=== PATIENT | female | born 1995 | race African-American/Black ===

== ENCOUNTER 2018-02-22 12:50 | Emergency (ER) | payer SELFPAY ==
[2018-02-22] MEDS ORDERED: MORPHINE 4 MG/ML SYR ONE (13:47)
[2018-02-22] MEDS ORDERED: ONDANSETRON 4 MG/2 ML VIAL ONE (13:47)
[2018-02-22 14:07] LABS: Absolute Lymphocytes (CBC) 2.5 K/uL (0.7-4.9); Absolute Monocytes 0.3 K/uL (0.1-1.3); Absolute Neutrophil 2.7 K/uL (1.8-8.0); Basophils % 0.8 % (0-1.3); Eosinophils % 2.4 % (0-4.4); Hematocrit 35.2 % (36.0-45.0); Lymphocytes % 43.6 % (15.3-44.8); MCH 26.5 pg (27.0-35.0); MCV 82.2 fL (80-100); MPV 8.8 fL (7.6-11.3); RBC Red Blood Cell Count 4.27 M/uL (3.86-4.86)
[2018-02-22 14:16] LABS: Bicarbonate 23 mEq/L (21-31); Glucose Level 94 mg/dL (65-120); Potassium 3.2 mEq/L (3.6-5.0); Sodium Level 137 mEq/L (135-145)
[2018-02-22 14:17] LABS: BUN Blood Urea Nitrogen 11 mg/dL (6-20)
[2018-02-22 14:35] LABS: HCG, Quantitative < 5.0 mIU/mL (<5)
[2018-02-22 14:37] LABS: Urine Blood 3+ (NEG); Urine Glucose NEGATIVE (NEG); Urine Protein 1+ (NEG)
[2018-02-22] MEDS ORDERED: KETOROLAC 30 MG/ML INJ ONE (15:04)
--- NOTE | 2018-02-22 15:17 | RAD REPORT ---
EXAM DESCRIPTION: CT - Abdomen Pelvis W Contrast - 02/22/2018 2:53 pm CLINICAL HISTORY: Abdominal pain and vaginal bleeding COMPARISON: none. TECHNIQUE: Computed axial tomography of the abdomen pelvis was obtained. 100 cc Isovue-300 was admin istered intravenously. Oral contrast was not requested which limits evaluation of bowel. All CT scans are performed using dose optimization technique as appropriate and may include automated exposure control or mA/KV adjustment according to patient size. FINDINGS: The liver, spleen, pancreas, adrenal and left kidney appear unremarkable. Two calculi are present within the right kidney. The largest measures 2 millimeters. Hydronephrosis is not seen. Righ t renal cortical thinning is present There is no evidence of diverticulitis. The appendix is normal. An adnexal mass is not seen. A minimal amount of free fluid probably is physiologic IMPRESSION: Tiny nonobstructing right renal calculi. Right renal cortical thinning may be secondary to prior inflammation
[2018-02-22 16:10] LABS: ALT/SGPT 15 IU/L (10-60); AST/SGOT 21 IU/L (10-42); Albumin 4.5 g/dL (3.2-5.5); Alkaline Phosphatase 43 IU/L (42-121); Bilirubin Direct < 0.1 mg/dL (0-0.2); Bilirubin Total 0.5 mg/dL (0.3-1.2); Protein, Total 8.4 g/dL (6.0-8.3)
[2018-02-22] MEDS ORDERED: POTASSIUM 25 MEQ EFFERV TAB ONE (17:02)
--- NOTE | 2018-02-22 17:55 | EDPHYS ---
Physician Documentation [facility] Name: Viri Villavicencio Age: 22 yrs Sex: Female : 1995 Arrival Date: 02/22/2018 Time: 12:53 Bed 6 Private MD: Scout Mcgee E ED Physician Roger Velasquez HPI: 02/22 13:30 This 22 yrs old Black Female presents to ER via Ambulatory with complaints of Abdominal cp Pain, Vaginal Bleeding. 13:30 The patient presents with abdominal pain right side of abdomen. cp 13:30 Onset: The symptoms/episode began/occurred today. The symptoms do not radiate. cp 13:30 Associated signs and symptoms: Pertinent positives: vaginal bleeding, Pertinent cp negatives: anorexia, blood in stools, constipation, diarrhea, fever, hematuria, vomiting. The symptoms are described as achy. Modifying factors: the symptoms are aggravated by pressure. Severity of pain: in the emergency department the pain is actually worse moderately. Patient reports vaginal bleeding times 1 week with passage of clots. Patient reports she was started on depo shot last month for heavy irregular menstrual bleeding. 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 - Social history:: Smoking status: Patient uses tobacco products, smokes one-half pack cigarettes per day. ROS: 13:38 Constitutional: Negative for body aches, chills, fever, poor PO intake. cp 13:38 Eyes: Negative for injury, pain, redness, and discharge. cp 13:38 Cardiovascular: Negative for chest pain, edema, palpitations. 13:38 Respiratory: Negative for cough, shortness of breath, wheezing. 13:38 Abdomen/GI: Positive for abdominal pain, abdominal cramps, Negative for vomiting, diarrhea, constipation, anorexia, dysphagia, black/tarry stool, rectal bleeding. 13:38 Back: Negative for pain at rest, pain with movement. 13:38 : Positive for vaginal bleeding, Negative for urinary symptoms, bladder incontinence. 13:38 Skin: Negative for cellulitis, rash. 13:38 Neuro: Negative for altered mental status, dizziness, headache, syncope, near syncope, weakness. 13:38 All other systems are negative. Exam: 13:45 Constitutional: The patient appears in no acute distress, alert, awake, non-toxic, well cp developed, well nourished, uncomfortable. 13:45 Head/Face: Normocephalic, atraumatic. cp 13:45 Eyes: Pupils equal round and reactive to light, extra-ocular motions intact. Lids and cp lashes normal. Conjunctiva and sclera are non-icteric and not injected. Cornea within normal limits. Periorbital areas with no swelling, redness, or edema. ENT: Nares patent. No nasal discharge, no septal abnormalities noted. Tympanic membranes are normal and external auditory canals are clear. Oropharynx with no redness, swelling, or masses, exudates, or evidence of obstruction, uvula midline. Mucous membranes moist. Chest/axilla: Normal chest wall appearance and motion. Nontender with no deformity. No lesions are appreciated. Cardiovascular: Regular rate and rhythm with a normal S1 and S2. No gallops, murmurs, or rubs. Normal PMI, no JVD. No pulse deficits. Respiratory: Lungs have equal breath sounds bilaterally, clear to auscultation and percussion. No rales, rhonchi or wheezes noted. No increased work of breathing, no retractions or nasal flaring. 13:45 Abdomen/GI: Inspection: abdomen appears normal, Bowel sounds: active, all quadrants, Palpation: soft, in all quadrants, moderate abdominal tenderness, in the right lower quadrant, rebound tenderness, is not appreciated, voluntary guarding, is elicited in the right lower quadrant. 13:45 Back: pain, is absent, ROM is normal. 13:45 Skin: cellulitis, is not appreciated, no rash present. Vital Signs: 13:07 BP 132 / 80; Pulse 77; Resp 17; Temp 98.2; Pulse Ox 100% on R/A; Weight 58.97 kg; aj Height 5 ft. 4 in. (162.56 cm); 13:40 BP 122 / 78 Supine; Pulse 87; Resp 19; Pulse Ox 100% on R/A; ae1 13:43 BP 127 / 78 Sitting; Pulse 73; Resp 18; Pulse Ox 100% on R/A; ae1 15:10 BP 118 / 80; Pulse 55; Resp 18; Pulse Ox 100% on R/A; ae1 16:10 BP 136 / 99; Pulse 50; Resp 18; Pulse Ox 98% on R/A; ae1 17:52 BP 120 / 77; Pulse 60; Resp 16; Pulse Ox 100% on R/A; ae1 18:25 BP 127 / 76; Pulse 53; Resp 16; Pulse Ox 99% ; jl7 13:07 Body Mass Index 22.31 (58.97 kg, 162.56 cm) aj MDM: 13:20 Patient medically screened. 14:00 Differential diagnosis: appendicitis, Dysmenorrhea, Ectopic , Ovarian Torsion, cp Pelvic Inflammatory Disease, Ureterolithiasis, urinary tract infection, anemia. 17:45 Data reviewed: vital signs, nurses notes, lab test result(s), radiologic studies, CT cp scan, ultrasound. 17:45 Counseling: I had a detailed discussion with the patient and/or guardian regarding: the cp historical points, exam findings, and any diagnostic results supporting the discharge/admit diagnosis, lab results, radiology results, the need for outpatient follow up, a family practitioner, an OB/Gyne specialist, to return to the emergency department if symptoms worsen or persist or if there are any questions or concerns that arise at home. Response to treatment: the patient's symptoms have markedly improved after treatment. 02/22 13:42 Order name: Quantitative Hcg; Complete Time: 14:35 02/22 14:36 Interpretation: Reviewed. 02/22 13:42 Order name: Abo/rh Typing; Complete Time: 15:23 02/22 13:42 Order name: Basic Metabolic Panel; Complete Time: 14:35 02/22 16:12 Interpretation: Normal except: K 3.2. 02/22 13:42 Order name: CBC with Diff; Complete Time: 14:33 02/22 14:34 Interpretation: Normal except: HGB 11.3; HCT 35.2; MCV 82.2; MCH 26.5. 02/22 14:07 Order name: Urine Dipstick--Ancillary (enter results); Complete Time: 15:23 em1 02/22 15:23 Interpretation: Normal except: UBLD 3+; UPROT 1+. 02/22 14:07 Order name: Urine --Ancillary (enter results); Complete Time: 15:23 em1 02/22 14:35 Order name: CT Abd/Pelvis - W/Contrast: no oral contrast; Complete Time: 15:23 cp 02/22 15:25 Order name: LFT's; Complete Time: 16:12 cp 02/22 16:12 Interpretation: Normal except: TP 8.4; GLOB 3.9. cp 02/22 15:25 Order name: US Transvaginal Study (Probe) cp 02/22 16:49 Order name: ABO/RH no charge; Complete Time: 16:57 EDMS 02/22 13:21 Order name: Orthostatics; Complete Time: 13:56 cp 02/22 13:42 Order name: Urine Test (obtain specimen); Complete Time: 13:45 cp 02/22 13:42 Order name: IV Saline Lock; Complete Time: 13:45 cp 02/22 13:42 Order name: Labs collected and sent; Complete Time: 13:56 cp 02/22 13:42 Order name: NPO; Complete Time: 13:45 cp 02/22 13:42 Order name: Urine Dipstick-Ancillary (obtain specimen); Complete Time: 13:45 cp Administered Medications: 13:46 Drug: Zofran 4 mg Route: IVP; Site: right antecubital; ae1 16:14 Follow up: Response: No adverse reaction; Nausea is decreased ae1 13:49 Drug: morphine 4 mg Route: IVP; Site: right antecubital; ae1 14:31 Follow up: Response: Pain is unchanged, physician notified ae1 15:05 Drug: TORadol 30 mg Route: IVP; Site: right antecubital; ae1 16:14 Follow up: Response: Pain is decreased ae1 17:06 Drug: Potassium Effervescent Tablet 50 mEq Route: PO; ae1 Disposition: 02/22/18 17:55 Discharged to Home. Impression: Abnormal uterine and vaginal bleeding, unspecified. - Condition is Stable. - Discharge Instructions: Abnormal Uterine Bleeding. - Prescriptions for Naprosyn 500 mg Oral Tablet - take 1 tablet by ORAL route 2 times per day take with food; 20 tablet. Tramadol 50 mg Oral Tablet - take 1 tablet by ORAL route every 8 hours as needed; 15 tablet. - Medication Reconciliation Form, Thank You Letter, Antibiotic Education, Prescription Opioid Use form. - Follow up: Scout Mcgee MD; When: 1 - 2 days; Reason: Recheck today's complaints. - Problem is new. - Symptoms have improved. Addendum: 02/23/2018 22:22 Co-signature as Attending Physician, Roger Velasquez MD I agree with the assessment and k dr plan of care. Signatures: Dispatcher [employer] EDMS Mel Echevarria RN RN Roger Lopez MD MD [facility] Swapnil Mayberry PA PA cp Juan David Garcia RN RN ae1 Shakila Hull RN RN jl7 Corrections: (The following items were deleted from the chart) 02/22 18:32 17:55 02/22/2018 17:55 Discharged to Home. Impression: Abnormal uterine and vaginal jl7 bleeding, unspecified. Condition is Stable. Forms are Medication Reconciliation Form, Thank You Letter, Antibiotic Education, Prescription Opioid Use. Follow up: Scout Mcgee; When: 1 - 2 days; Reason: Recheck today's complaints. Problem is new. Symptoms have improved. cp
--- NOTE | 2018-02-22 17:55 | ER ---
Nurse's Notes [facility] Name: Viri Villavicencio Age: 22 yrs Sex: Female : 1995 Arrival Date: 02/22/2018 Time: 12:53 Bed 6 Private MD: Scout Mcgee E Diagnosis: Abnormal uterine and vaginal bleeding, unspecified Presentation: 02/22 13:05 Presenting complaint: Patient states: Vaginal bleeding with clots, sharp pain to right aj pelvic area. Started on Depo last month for irregular bleeding. Transition of care: patient was not received from another setting of care. Onset of symptoms was February 13, 2018. Care prior to arrival: None. 13:05 Method Of Arrival: Ambulatory aj 13:05 Acuity: MAGALI 3 aj 15:09 Initial Sepsis Screen: Does the patient meet any 2 criteria? No. Patient's initial ae1 sepsis screen is negative. Does the patient have a suspected source of infection? No. Patient's initial sepsis screen is negative. Triage Assessment: 13:07 General: Appears in no apparent distress. uncomfortable, Behavior is calm, cooperative, aj appropriate for age. Pain: Complains of pain in right inguinal area. Neuro: Level of Consciousness is awake, alert, obeys commands, Oriented to person, place, time, situation, Appropriate for age. Respiratory: Airway is patent Respiratory effort is even, unlabored, Respiratory pattern is regular, symmetrical. GI: Abdomen is flat, non-distended. : Reports vaginal bleeding that is with clots. Derm: Skin is intact, is healthy with good turgor, Skin is pink, warm \T\ dry. normal. 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 - Social history:: Smoking status: Patient uses tobacco products, smokes one-half pack cigarettes per day. Screenin:08 Abuse screen: Denies threats or abuse. Nutritional screening: No deficits noted. ae1 Tuberculosis screening: No symptoms or risk factors identified. Fall Risk None identified. Assessment: 13:15 General: Appears uncomfortable, Behavior is cooperative, anxious, crying. Pain: ae1 Complains of pain in right lower quadrant and left lower quadrant. Neuro: Level of Consciousness is awake, alert, obeys commands, Oriented to person, place, time, situation. Cardiovascular: Heart tones S1 S2 present Patient's skin is warm and dry. Rhythm is regular. Respiratory: Airway is patent Respiratory effort is even, unlabored, Respiratory pattern is regular, symmetrical, Patient reports occasional SOB upon exertion Breath sounds are clear bilaterally. GI: Bowel sounds present X 4 quads. Abd is soft Abdomen is tender to palpation in right lower quadrant and left lower quadrant. : Reports vaginal bleeding that is with clots, heavy flow dark red. EENT: No signs and/or symptoms were reported regarding the EENT system. Derm: Skin is normal. Musculoskeletal: No signs and/or symptoms reported regarding the musculoskeletal system. 13:40 Reassessment: Patient states she is unable to stand due to increased abdominal pain ae1 upon movement. 14:30 Reassessment: Patient report no change to her pain after pain medication ae1 administration. Provider notified. 16:17 Reassessment: Patient states feeling better. Patient states symptoms have improved. ae1 Pain: Pain currently is 6 out of 10 on a pain scale. at worst was 10 out of 10 on a pain scale. 17:51 Reassessment: Provider at bedside discussing plan of care. ae1 17:52 Reassessment: Patient appears in no apparent distress at this time. Patient and/or ae1 family updated on plan of care and expected duration. Pain level reassessed. Patient states feeling better. Vital Signs: 13:07 BP 132 / 80; Pulse 77; Resp 17; Temp 98.2; Pulse Ox 100% on R/A; Weight 58.97 kg; aj Height 5 ft. 4 in. (162.56 cm); 13:40 BP 122 / 78 Supine; Pulse 87; Resp 19; Pulse Ox 100% on R/A; ae1 13:43 BP 127 / 78 Sitting; Pulse 73; Resp 18; Pulse Ox 100% on R/A; ae1 15:10 BP 118 / 80; Pulse 55; Resp 18; Pulse Ox 100% on R/A; ae1 16:10 BP 136 / 99; Pulse 50; Resp 18; Pulse Ox 98% on R/A; ae1 17:52 BP 120 / 77; Pulse 60; Resp 16; Pulse Ox 100% on R/A; ae1 18:25 BP 127 / 76; Pulse 53; Resp 16; Pulse Ox 99% ; jl7 13:07 Body Mass Index 22.31 (58.97 kg, 162.56 cm) aj ED Course: 12:53 Patient arrived in ED. mr 12:53 Scout Mcgee MD is Private Physician. mr 13:06 Triage completed. aj 13:07 Arm band placed on left wrist. Patient placed in an exam room. aj 13:09 Juan David Garcia, ANIYAH is Primary Nurse. ae1 13:16 Inserted saline lock: 22 gauge in right antecubital area, using aseptic technique. ae1 Blood collected. 13:19 Swapnil Mayberry PA is PHCP. cp 13:19 Roger Velasquez MD is Attending Physician. cp 14:[address] sj 14:53 CT Abd/Pelvis - W/Contrast: no oral contrast In Process Unspecified. EDMS 15:09 Placed in gown. Bed in low position. Call light in reach. Side rails up X 1. Adult w/ ae1 patient. Pulse ox on. NIBP on. 15:09 No provider procedures requiring assistance completed. ae1 15:36 Patient taken to ultrasound. via wheelchair. cy 15:52 Ultrasound completed. Patient tolerated well. cy 15:55 US Transvaginal Study (Probe) In Process Unspecified. EDMS 17:54 Scout Mcgee MD is Referral Physician. cp 18:30 IV discontinued, intact, bleeding controlled, No redness/swelling at site. Pressure jl7 dressing applied. Administered Medications: 13:46 Drug: Zofran 4 mg Route: IVP; Site: right antecubital; ae1 16:14 Follow up: Response: No adverse reaction; Nausea is decreased ae1 13:49 Drug: morphine 4 mg Route: IVP; Site: right antecubital; ae1 14:31 Follow up: Response: Pain is unchanged, physician notified ae1 15:05 Drug: TORadol 30 mg Route: IVP; Site: right antecubital; ae1 16:14 Follow up: Response: Pain is decreased ae1 17:06 Drug: Potassium Effervescent Tablet 50 mEq Route: PO; ae1 Outcome: 17:55 Discharge ordered by . cp 18:30 Discharged to home ambulatory. jl7 18:30 Condition: stable 18:30 Discharge instructions given to patient, family, Instructed on discharge instructions, follow up and referral plans. medication usage, Demonstrated understanding of instructions, follow-up care, medications, Prescriptions given X 2. 18:32 Patient left the ED. jl7 Signatures: Dispatcher [employer] EDMS Mel Echevarria, Ninoska Perez RN mr Nicolás, Swapnil Nolan, MERRY PA Juan David Montana RN RN ae1 Shakila Hull RN RN jl7 Aristides Bynum
--- NOTE | 2018-02-22 18:27 | RAD REPORT ---
EXAM DESCRIPTION: US - Transvaginal Study Probe - 02/22/2018 3:55 pm CLINICAL HISTORY: Heavy vaginal bleeding COMPARISON: none FINDINGS: The uterus measures 7 x 4 x 6cm. A 2.6 centimeter isoechoic structure is present within th e uterine fundus Endometrial stripe measures 7 millimeters The ovaries are normal in size and echotexture. No significant free fluid is seen. IMPRESSION: 2.6 centimeter isoechoic structure within the uterine fundus probably represents an intr amural fibroid
== END 2018-02-22 18:32 | disposition home or self-care (01) ==
LOC: ER 12:50
DX: N93.9 Abnormal uterine and vaginal bleeding, unspecified (principal); F17.210 Nicotine dependence, cigarettes, uncomplicated
CPT/HCPCS: 36415; 74177; 76830; 80048; 80076; 81003; 81025; 84702; 85025; 86900; 86901; 96374; 96375; 99284; J2405; Q9967

== ENCOUNTER 2018-02-27 18:05 | Emergency (ER) | payer SELFPAY ==
[2018-02-27 19:32] LABS: Urine Blood TRACE (NEG); Urine Glucose NEGATIVE (NEG); Urine Protein 1+ (NEG)
--- NOTE | 2018-02-27 20:04 | RAD REPORT ---
EXAM DESCRIPTION: Lumbar Spine 3 Views CLINICAL HISTORY: Radiculopathy COMPARISON: None. FINDINGS: Vertebral body heights appear maintained. No compression fracture noted. Disc spaces are m aintained. No spondylolysis or spondylolisthesis. IMPRESSION: Negative study.
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
[2018-02-27] MEDS ORDERED: IBUPROFEN 200 MG TAB PO ONE (20:21)
[2018-02-27] MEDS ORDERED: CYCLOBENZAPRINE 10 MG TAB ONE (20:21)
== END 2018-02-27 20:37 | disposition home or self-care (01) ==
LOC: ER 18:05
DX: M54.5 Low back pain (principal); V49.49XA Driver injured in collision with other motor vehicles in traffic accident, initial encounter
CPT/HCPCS: 72100; 81003; 81025; 99284